=== PATIENT | female | born 2000 | race African-American/Black ===

== ENCOUNTER 2020-12-21 07:55 | Emergency (ER) | payer OTHER ==
[~2020-12-21] VITALS: Ht 154.9 cm; Wt 54.4 kg
[2020-12-21 08:10] VITALS: BP 115/70
== END 2020-12-21 09:37 | disposition home or self-care (01) ==
LOC: ER 07:55
DX: M79.671 Pain in right foot (principal)
CPT/HCPCS: 73630; 81025